=== PATIENT | male | born 2000 | race Caucasian/White ===

== ENCOUNTER 2018-08-20 23:16 | Emergency (ER) | payer SELFPAY ==
[2018-08-20] MEDS ORDERED: traMADol 50 MG Tab PO ONE (23:39)
--- NOTE | 2018-08-20 23:39 | EDM.PDOC ---
ED HPI GENERAL MEDICAL PROBLEM - General Chief Complaint: ENT Problem Stated Complaint: TOOTHACHE Time Seen by Provider: 08/20/18 23:20 Source of Information: Reports: Patient History Limitations: Reports: No Limitations - History of Present Illness INITIAL COMMENTS - FREE TEXT/NARRATIVE: 18 y.o.w.m came to the ed because he could not sleep due to toothache. Pt took Tylenol and motrin at home without help. No other acute medical issues. BP 165/ 95 RR 18 Pulse ox 100% on RA Temp 36.6 Onset Date: 08/19/18 Onset Time: 09:00 Duration: Day(s):, Intermittent Location: Reports: Face Quality: Reports: Ache, Burning, Dull Severity: Moderate Improves with: Reports: Medication Worsens with: Reports: None Context: Reports: Other Associated Symptoms: Reports: No Other Symptoms - Related Data Allergies Allergy/AdvReac Type Severity Reaction Status Date / Time seafood Allergy Swelling Uncoded 08/20/18 23:32 Home Meds: Home Meds Amoxicillin/Potassium Clav [Augmentin 875-125 Tablet] 1 each PO BID #10 tablet 08/20/18 [Rx] traMADol [Ultram] 50 mg PO Q6H PRN #2 tab 08/20/18 [Rx] ED ROS ENT - Review of Systems Review Of Systems: See Below Constitutional: Reports: No Symptoms HEENT: Reports: Dental Pain Respiratory: Reports: No Symptoms Endocrine: Reports: No Symptoms GI/Abdominal: Reports: No Symptoms : Reports: No Symptoms Musculoskeletal: Reports: No Symptoms Skin: Reports: No Symptoms Neurological: Reports: No Symptoms Psychiatric: Reports: No Symptoms Hematologic/Lymphatic: Reports: No Symptoms Immunologic: Reports: No Symptoms ED EXAM, ENT - Physical Exam Exam: See Below Exam Limited By: No Limitations General Appearance: Alert, WD/WN, Mild Distress Eye Exam: Bilateral Eye: Normal Inspection Ears: Normal External Exam Nose: Normal Inspection, Normal Mucousa Mouth/Throat: Normal Lips, Normal Oropharynx, Dental Pain, Dental Tenderness Head: Atraumatic, Normocephalic Neck: Normal Inspection, Supple, Non-Tender Respiratory/Chest: No Respiratory Distress, Lungs Clear, Normal Breath Sounds, No Accessory Muscle Use, Chest Non-Tender Cardiovascular: Normal Peripheral Pulses, Regular Rate, Rhythm, No Edema, No Gallop, No JVD, No Murmur, No Rub GI/Abdominal: Normal Bowel Sounds, Soft, Non-Tender, No Organomegaly, No Abnormal Bruit, No Mass, Pelvis Stable (Male) Exam: Deferred Rectal (Males) Exam: Deferred Back: Normal Inspection, Full Range of Motion Extremities: Normal Inspection, Normal Range of Motion, Non-Tender, No Pedal Edema Neurological: Alert, Oriented, CN II-XII Intact, Normal Cognition, Normal Gait Psychiatric: Normal Affect, Normal Mood Skin: Warm, Dry, Intact, Normal Color, No Rash Lymphatic: No Adenopathy Course - Vital Signs Text/Narrative:: 18 y.o.w.m came to the ed because he could not sleep due to toothache. Pt took Tylenol and motrin at home without help. No other acute medical issues. BP 165/ 95 RR 18 Pulse ox 100% on RA Temp 36.6 PE: WNWD W M with toothache and gingivitis Impression: Toothache, Gingivitis. TxL Ultram prescription for Augmentin. No prescription for Ultram was given Reecam: Stable Plan: D/C with instructions Last Recorded V/S: Last Vital Signs Temp 37.1 C 08/20/18 23:20 Pulse 92 08/20/18 23:45 Resp 22 H 08/20/18 23:20 BP 160/88 H 08/20/18 23:45 Pulse Ox 100 08/20/18 23:20 - Orders/Labs/Meds Meds: Medications Discontinued Medications Generic Name Dose Route Start Last Admin Trade Name Freq PRN Reason Stop Dose Admin Tramadol HCl 50 mg 08/20/18 23:39 08/20/18 23:46 Ultram PO 08/20/18 23:40 50 mg ONETIME ONE Administration Departure - Departure Time of Disposition: 23:33 Disposition: Home, Self-Care 01 Condition: Good Clinical Impression: Toothache, Gingivitis - Discharge Information Prescriptions: Amoxicillin/Potassium Clav [Augmentin 875-125 Tablet] 1 each PO BID #10 tablet traMADol [Ultram] 50 mg PO Q6H PRN #2 tab PRN Reason: for severe pain Referrals: PCP,None [Primary Care Provider] - Forms: ED Department Discharge Additional Instructions: Please take the meds as recommended, please f/u with your dentist A.S.A.P come back i your symptom get worse acutely
== END 2018-08-20 23:50 | disposition home or self-care (01) ==
LOC: FB.ED 23:16
DX: K05.10 Chronic gingivitis, plaque induced (principal); K08.89 Other specified disorders of teeth and supporting structures; Z91.013 Allergy to seafood
CPT/HCPCS: 99282; A9270

== ENCOUNTER 2020-02-03 17:33 | Emergency (ER) | payer OTHER ==
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
== END 2020-02-03 18:38 | disposition home or self-care (01) ==
LOC: FB.ED 17:33
DX: S16.1XXA Strain of muscle, fascia and tendon at neck level, initial encounter (principal); E66.9 Obesity, unspecified; Z91.013 Allergy to seafood; V89.2XXA Person injured in unspecified motor-vehicle accident, traffic, initial encounter
CPT/HCPCS: 99282; 99283